=== PATIENT | female | born 1950 | race Caucasian/White ===

== ENCOUNTER → 2022-05-10 15:08 | Outpatient (CLI) | payer MEDICARE, SELFPAY | PROVIDERS: Referring Provider Orthopaedic Surgery; Visit Provider Orthopaedic Surgery | DX: Z01.818 Encounter for other preprocedural examination (principal) | CPT/HCPCS: 93005 ==

== ENCOUNTER → 2022-05-17 10:54 | Outpatient (CLI) | payer OTHER, SELFPAY ==
--- NOTE | 2022-05-17 | DI.CT.S_ITS ---
PROCEDURE: CT UE LT WO CON INDICATIONS: Primary osteoarthritis, left shoulder TECHNIQUE: Noncontrast 1-1.5 mm thick sections acquired from the acromioclavicular joint to the inferior scapula, with coronal and sagittal reformatting. COMPARISON: None. FINDINGS: Image quality: Excellent. Bones: Moderate to severe glenohumeral joint osteoarthritic changes are seen with significant joint space narrowing, extensive subchondral sclerosis, cyst formation and prominent marginal osteophyte formation. Moderate to severe glenohumeral joint osteoarthritic changes also seen with joint space narrowing, subchondral sclerosis and downward osteophyte formation depressing the musculotendinous junction of supraspinatus. No acute fracture or dislocation. No suspicious bony lesions. Visualized left ribs are grossly intact. Soft tissues: There is no full-thickness rotator cuff tendon rupture. No significant rotator cuff muscle atrophy is seen on sagittal views. There is no significant joint effusion or intra-articular loose bodies. No abnormal soft tissue calcifications. IMPRESSION: 1. Moderate to severe acromioclavicular joint and glenohumeral joint osteoarthritis. No shoulder fracture or dislocation. No suspicious bony lesions. 2. No full-thickness rotator cuff tendon rupture. No significant rotator cuff muscle atrophy. No abnormal soft tissue calcifications or significant joint effusion. Dictated by: Phillip Lazcano M.D. on 05/17/2022 at 13:12 Approved by: Phillip Lazcano M.D. on 05/17/2022 at 13:14
== END ==
PROVIDERS: Referring Provider Orthopaedic Surgery; Visit Provider Orthopaedic Surgery
DX: M19.012 Primary osteoarthritis, left shoulder (principal)
CPT/HCPCS: 73200

== ENCOUNTER 2022-06-28 06:12 | Inpatient (IN) | payer OTHER, SELFPAY ==
[2022-06-10 10:00] VITALS: BMI 33.4
[2022-06-28] VITALS (7 sets, daily range): BP systolic 111–153; BP diastolic 62–83; PULSE 85–101; RESP 12–20; TEMP 36.1–36.7; O2SAT 90–97; BMI 33.4
[2022-06-28] MEDS: LACTATED RINGERS 1,000 ML 42 ML IV ×2 (07:16→09:01)
[2022-06-28 07:30] LABS: COVID19 -Nasal RAPID Negative (Negative)
--- NOTE | 2022-06-28 07:33 | P.HP_ITS ---
History of Present Illness History of Present Illness Date Patient Seen: 06/28/22 Time Patient Seen: 07:34 Chief complaint: LT TSA Narrative: Precious Moscoso) is a pleasant 71-year-old female who presented to me with years of ongoing symptoms of left shoulder pain. At this point she can not sleep and she has difficulty reaching above her shoulder level and perform activities of daily living. She exhausted all conservative measures including activity modifications, anti-inflammatories and therapies. At this point she understands the risks of surgery and wishes to go forward. Patient History Medical History BCC (basal cell carcinoma) Chronic back pain COVID-19 virus infection (~2021) Hepatitis C Hypothyroid Osteoarthritis Surgical History History of carpal tunnel surgery of left wrist History of carpal tunnel surgery of right wrist History of hysterectomy History of total left knee replacement History of total right knee replacement Hx of bilateral cataract extraction (2022) Hx of detached retina repair (09/2021) Family & Social History Social History: household members none Prior Living Arrangements Mobile home Safety & Behavioral: Feels Safe in Current Yes Environment Been Physically Hurt or No Threatened By a Person Suicidal Ideation Description None Suicide Plan Description No Plan Tobacco & Substance use: Smoking Status Former smoker alcohol intake former Substance Use Type does not use Meds Home Medications and Allergies Home Medications Medication Instructions Recorded Confirmed Type levothyroxine 88 mcg tablet 88 mcg PO DAILY 06/10/22 06/28/22 History naproxen sodium 220 mg capsule 440 mg PO DAILY PRN Pain 06/10/22 06/28/22 History Allergies Allergy/AdvReac Type Severity Reaction Status Date / Time No Known Drug Allergies Allergy Verified 06/28/22 07:24 Review of Systems Review of Systems ROS: Yes All systems reviewed with the patient and are negative except as otherwise documented Exam Narrative Exam Narrative: HEENT: Head atraumatic eyes anicteric moist mucous membranes Cardiovascular: Palpable peripheral pulses extremities are warm and well perfu sed Respiratory: Breathing comfortably on room air Psychiatric: Appropriate mood and affect Neuro: No acute deficits Musculoskeletal: Exam of left shoulder demonstrates forward elevation 95 ext ernal rotation 30, internal rotation belt line. Sensation intact to light touch in median, radial, ulnar nerve distributions. Able to fire axillary nerve. 2+ radial pulse with brisk capillary refill less than 2 seconds. Objective Labs Labs: Laboratory Results - last 24 hr 06/28/22 06:50 SARS-CoV-2 (PCR) Negative Assessment & Plan Assessment & Plan narrative: Assessment: 71-year-old female with left shoulder glenohumeral arthritis Plan: Patient wishes to go forward with left shoulder reverse total shoulder arthroplasty as previously discussed in clinic. All of her questions were answered fully to her satisfaction. Time Spent With Patient Critical Care time: I spent a total of [] minutes of critical care time on this patient's care today; this time is exclusive of procedural time.
--- NOTE | 2022-06-28 08:02 | SUR.PREOP ---
Block start time [0750] . Monitoring initiated and maintained throughout procedure. Oxygen and medications given per anesthesiologist. Patient remained stable throughout procedure, no adverse reactions noted. Block end time [0756 ].
[2022-06-28] MEDS: CEFAZOLIN 2 GM/100 ML PREMIX 100 ML IV (08:20)
[2022-06-28] MEDS: TRANEXAMIC ACID 1,000 MG VIAL 1000 MG INJ ×2 (08:36→09:58)
--- NOTE | 2022-06-28 08:48 | SUR.OPER ---
Beach chair with Sandran/Atif shoulder positioner. Lower body on padded OR bed. Head in foam padded head cradle, secured with straps. Non-operative arm secured <90 degrees abduction. Pillow under knees. Tape at thigh and lower legs.
[2022-06-28] MEDS: BUPIVACAINE 0.25% (PF) 30 ML, EPINEPHrine 0.15 MG INJ (08:57)
--- NOTE | 2022-06-28 10:05 | P.OP_ITS ---
Operative Date/Time/Diagnoses Date of procedure: 06/28/22 Time of procedure: 10:05 Pre-op diagnosis: Left shoulder glenohumeral arthritis Post-op diagnosis: same Procedure & Clinicians Procedure: Left shoulder reverse total shoulder arthroplasty Same procedure as scheduled: Yes Indications: This is a 71-year-old female who has rotator cuff arthropathy. Symptoms have been present for years, insidious onset. Patient has failed conservative therapy including injections, physical therapy, anti-inflammatories and activity modification. After extensive discussion in clinic, they wished to go forward with surgery. Risks and benefits were described including the risk of infection, bleeding, damage to internal structures including nerves. We also discussed the risk of failure of surgery and the need for revision surgery as well as the risk of anesthesia. The patient expressed understanding with these risks and wished to go forward with surgery. Surgeon: Srikanth Camacho Industrial Safety Engineer: Sara Sam Anesthesia Type: General Operative Notes Findings: Findings: Osteoarthritis of the glenoid and humeral head as well as a defient rotator cuff as noted on preoperative imaging and under direct visualization Prosthetic devices, grafts, tissues, transplants, or devices: Tornier implants Base plate: 25 mm full wedge (15?) Glenosphere: Standard 36 mm Stem: Perform to Poly: +0 concentric Estimated Blood Loss (mL): 50 Procedure in detail: Operative note: Patient was seen in the preoperative holding unit. The correct left shoulder was identified and marked with my initials. Again we discussed the risks and benefits of surgery and they wished to go forward with surgery. The patient was brought back to the operating room and placed supine on the operating table. Smooth endotracheal intubation was performed by anesthesia. All prominences were padded and they were placed into the beach chair position. Intravenous antibiotics were given. The left shoulder was then prepped with the standard sterile preparation and draping. A time-out was then performed in my initials were again identified on the correct shoulder. 1 g of IV tranexamic acid was given. A standard deltopectoral incision was made. Skin flaps were made. The cephalic vein was identified and retracted laterally. This was protected throughout the remainder of the case. Sharp dissection was made along the deltoid, subacromial and subcoracoid space to release adhesions. The conjoined tendon was identified and the axillary nerve was palpated and continuous using the tug test. It was protected throughout the remainder of the case. A brown retractor was placed underneath the deltoid muscle and a darach retractor underneath the conjoint tendon. The anterior circumflex artery and associated veins on the lower border of the subscapularis were identified and tied off using 0-Vicryl. The biceps tendon was identified in the bicipital groove. This was released from its sheath, and taken from its origin on the glenoid and tied into the pectoralis tendon for a solid tenodesis. We then began a subscapularis peel. The subscapularis was tagged with an Ethibond suture. A 360 degree circumferential release of the subscapularis was performed with protection of the axillary nerve. The coracohumeral ligament was released at the base of the coracoid. The coracoacromial ligament was left intact. The shoulder was then dislocated. Osteophytes were removed using combination of rongeur and osteotome. The rotator cuff was noted to be insufficient. An intramedullary guide was used set at version of 30?. Using an oscillating saw a conservative humeral head cut was made. Impaction reamers were reamed up to a size 2 stem set at angle 135?. A neck protector was placed. Attention was then turned to the glenoid. After retracting the humeral head posteriorly a circumferential release was performed of the capsule with protection of the axillary nerve. The labrum was then released starting at the biceps anchor and going around the rim a small amount of triceps was released from the inferior glenoid. A center guide pin was then placed using the guide, followed by Reamer. After adequate cartilage was removed the center drill hole was drilled and measured. The base plate was then implanted and screwed into place. The superior drill hole was drilled and filled in a nonlocking fashion, followed by the inferior and anterior and posterior holes in locking fashion. A standard 36 glenosphere was then selected and screwed into place onto the base plate. Turning back to the humerus, the humeral head was delivered and trialed with a +0 poly. The arm was taken through range of motion and this was felt to be stable. The trial was then removed and a dilute Betadine wash was then performed with 1 L of sterile saline. Before placing the final implant, drill holes were made in the bicipital groove for the subscapularis repair, and sutures were passed through the drill holes. The final stem was then impacted into the humerus. The shoulder was then reduced and again brought through range of motion and was felt to be stable. The interval was then closed using 0- Vicryl. The subscapularis was then repaired using a modified racking hitch with niece loupes. The deltopectoral interval was then closed with #2 Ethibond. The skin was closed with 2-0 PDS and dalia followed by Aquacel dressing. Patient was awoken from anesthesia and brought back to the postoperative recovery unit without issue. They were placed into a sling. Assisting participation: This operation could not have been safely performed (without compromising the technical results or length of the procedure) without the assistance of a skilled surgical corsetier. The surgical corsetier was medically necessary for proper positioning, retraction and manipulation of instruments, proper exposure, graft prep, and manipulation of tissue. Complications: none Post-operative Condition: stable Disposition: PACU Plan for aftercare: Postoperative instructions: Sling to remain on for 6 weeks. No external rotation past neutral for 6 weeks. Okay for him to come off her shower. Okay to shower over the Aquacel dressing. If any water gets underneath the dressing, remove the dressing. First postoperative visit in 2 weeks.
--- NOTE | 2022-06-28 11:00 | DI.RAD.S_ITS ---
PROCEDURE: XR SHOULDER LT 1V INDICATIONS: POST OP REV SHOULDER LEFT TECHNIQUE: 1 views of the shoulder were acquired. COMPARISON: [facility] [place], [place], XR SHOULDER 2+ VIEWS BILATERAL, 05/06/2022, 14:01. FINDINGS: Bones: Shoulder arthroplasty has been performed. No fractures or dislocations. No suspicious bony lesions. Visualized ribs appear intact. Soft tissues: No suspicious soft tissue calcifications. IMPRESSION: Expected appearance of left shoulder arthroplasty. Dictated by: Gabriela White M.D. on 06/28/2022 at 13:08 Transcribed by: STU on 06/28/2022 at 13:08 Approved by: Gabriela White M.D. on 06/28/2022 at 15:32
[2022-06-28] MEDS: OXYCODONE IR 5 MG TABLET PO ×2 (11:01→11:44)
== END 2022-06-28 12:30 | disposition home or self-care (01) | DRG 483 ==
PROVIDERS: Admitting Provider Orthopaedic Surgery; PCP Physician Assistant Medical; Referring Provider Orthopaedic Surgery; Visit Provider Orthopaedic Surgery
PROC: 0RRK00Z Replacement of Left Shoulder Joint with Reverse Ball and Socket Synthetic Substitute, Open Approach (ICD-10-PCS; CPT 23472; principal; 2022-06-28 07:45)
DX: M19.012 Primary osteoarthritis, left shoulder (principal); Z87.891 Personal history of nicotine dependence; Z20.822 Contact with and (suspected) exposure to COVID-19
CPT/HCPCS: 64450; 73020; 87635; C1776; C9803; J0171; J0690; J1100; J2250; J2405; J2704; J3010